=== PATIENT | female | born 1935 | race Caucasian/White ===

== ENCOUNTER 2017-12-03 08:00 | Day surgery (SDC) | payer MEDICARE, OTHER ==
[~2017-12-03] VITALS: Ht 157.5 cm; Wt 667.7 kg
[~2017-12-03 08:00] MED LIST: ABAT250V; ACET325 PO; ALBU90OI INH; ALBU90OI6 INH; ALBU90OI61 INH; ALUMAG30SU PO; ASPERCREME76.5 GM; Allergy25 M1 PO; CEFP200 PO; DICLOFENAC SOD100 G1 TOP; Emla Cream30 GM TP; Eql Vision For1 EACH PO; FURO20 PO; GUAI600T33 PO; HYDMOR2; Ibuprofen Ib200 MG PO; LAVAP17G PO; LEVFLO500 PO; LOSA25 PO; MELA3 PO; MIRALAX17 GM PO; NITR100CA PO; OMEPRAZOLE MAGN20 MG PO; ONDA8 PO; OXYB5 PO; Oxycodone-Apap1 EAC3; POTA10T PO; POTCHL10ER PO; PROP30DR BOTHEYES; SACC250C PO; SPIR25 PO; TRAM50 PO; [UNRECOGNIZED DRUG - OTHER] PO
== END 2017-12-03 11:13 | disposition home or self-care (01) ==
LOC: ORSCSDS 08:00
PROVIDERS: Internal Medicine Gastroenterology
PROC: 0DBP8ZX Excision of Rectum, Via Natural or Artificial Opening Endoscopic, Diagnostic (ICD-10-PCS; principal; 2017-12-03 09:30)
DX: Z85.038 Personal history of other malignant neoplasm of large intestine (principal); K62.1 Rectal polyp; K57.30 Diverticulosis of large intestine without perforation or abscess without bleeding; Z86.010 Personal history of colon polyps; R15.9 Full incontinence of feces; K64.8 Other hemorrhoids; Z87.891 Personal history of nicotine dependence
CPT/HCPCS: 88305; J7120

== ENCOUNTER 2019-09-14 00:03 | Day surgery (SDC) | payer MEDICARE, OTHER | END 2019-09-14 16:18 | disposition home or self-care (01) | LOC: ATC 00:03 | PROC: 30243N1 Transfusion of Nonautologous Red Blood Cells into Central Vein, Percutaneous Approach (ICD-10-PCS; principal; 2019-09-14) | DX: C18.7 Malignant neoplasm of sigmoid colon (principal); C78.02 Secondary malignant neoplasm of left lung; C78.01 Secondary malignant neoplasm of right lung; C78.7 Secondary malignant neoplasm of liver and intrahepatic bile duct; C77.2 Secondary and unspecified malignant neoplasm of intra-abdominal lymph nodes; Z88.0 Allergy status to penicillin; Z88.5 Allergy status to narcotic agent; Z79.52 Long term (current) use of systemic steroids; Z79.899 Other long term (current) drug therapy | CPT/HCPCS: 36415; 86850; 86900; 86901; 86923; J1642; J7050; P9016 ==

== ENCOUNTER 2019-11-16 13:23 | Day surgery (SDC) | payer MEDICARE, OTHER ==
--- NOTE | 2019-11-16 19:29 | NUR ---
SHIFT SUMMARY: PATIENT ON MEDICAL FLOOR TO RECEIVE 2X UNITS PRBCs-LESLIE UNABLE TO ACCOMODATE. MEDIPORT ACCESSED TO R CHEST. PT A&O; CALM AND COOPERATIVE WITH CARE. EXPECTED D/C TO HOME AFTER INFUSION COMPLETE. REPORT GIVEN TO ONCOMING RN.
--- NOTE | 2019-11-16 20:42 | NUR ---
PT STATUS TRANSFUSION COMPLETE, MEDIPORT DEACCESSED. VITAL SIGNS WNL. PT DRESSED. INFORMED. PT DENIES S/SX. PT ESCORTED OUT BY .
== END 2019-11-16 20:45 | disposition home or self-care (01) ==
LOC: ATC 13:23 → TRN 13:23 → MEDS 13:24 → ATC 20:45
DX: C18.7 Malignant neoplasm of sigmoid colon (principal); D63.1 Anemia in chronic kidney disease; D70.1 Agranulocytosis secondary to cancer chemotherapy; C78.02 Secondary malignant neoplasm of left lung; C78.01 Secondary malignant neoplasm of right lung; C78.7 Secondary malignant neoplasm of liver and intrahepatic bile duct; C77.2 Secondary and unspecified malignant neoplasm of intra-abdominal lymph nodes; Z79.899 Other long term (current) drug therapy; Z88.0 Allergy status to penicillin; Z88.5 Allergy status to narcotic agent; Z87.891 Personal history of nicotine dependence
CPT/HCPCS: 36430; 86850; 86900; 86901; 86923; J1642; J7050; P9016

== ENCOUNTER 2020-10-17 00:09 | Day surgery (SDC) | payer MEDICARE, OTHER | END 2020-10-17 11:35 | disposition home or self-care (01) | LOC: ATC 00:09 | PROC: 30233N1 Transfusion of Nonautologous Red Blood Cells into Peripheral Vein, Percutaneous Approach (ICD-10-PCS; principal; 2020-10-17) | DX: C18.7 Malignant neoplasm of sigmoid colon (principal); C77.2 Secondary and unspecified malignant neoplasm of intra-abdominal lymph nodes; C78.7 Secondary malignant neoplasm of liver and intrahepatic bile duct; C78.00 Secondary malignant neoplasm of unspecified lung; D64.9 Anemia, unspecified; D70.9 Neutropenia, unspecified; J30.9 Allergic rhinitis, unspecified; Z90.49 Acquired absence of other specified parts of digestive tract; Z87.891 Personal history of nicotine dependence; Z88.0 Allergy status to penicillin; Z88.5 Allergy status to narcotic agent | CPT/HCPCS: 36415; 36430; 86850; 86900; 86901; 86923; J1642; J7050; P9016 ==